=== PATIENT | male | born 1950 | race Caucasian/White ===

== ENCOUNTER → 2016-06-22 | Outpatient (CLI) | payer OTHER, MEDICARE | LOC: BHFA 14:15 | PROVIDERS: ATTEND Internal Medicine Cardiovascular Disease | DX: I25.10 Atherosclerotic heart disease of native coronary artery without angina pectoris (principal); E78.5 Hyperlipidemia, unspecified ==

== ENCOUNTER → 2017-10-05 | Outpatient (CLI) | payer OTHER, MEDICARE | LOC: FIMAGING 12:38 | PROVIDERS: ATTEND Internal Medicine Rheumatology | DX: Z13.820 Encounter for screening for osteoporosis (principal); Z79.52 Long term (current) use of systemic steroids ==

== ENCOUNTER 2018-07-09 14:31 | Inpatient (IN) | payer OTHER, MEDICARE ==
--- NOTE | 2018-07-09 15:10 | EDPHY ---
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, bilat quad repair in [facility] Time Seen by Provider: 07/09/18 14:38 HPI/ROS: This patient was evaluated in the emergency department by - Medical/Surgical History Hx Asthma: No Hx Chronic Respiratory Disease: No Hx Diabetes: No Hx Cardiac Disease: No Hx Renal Disease: No Hx Cirrhosis: No Hx Alcoholism: No Hx HIV/AIDS: No Hx Splenectomy or Spleen Trauma: No Other PMH: Shoulder Sx, hernia, PMR, - Social History Smoking Status: Never smoked Constitutional: Initial Vital Signs Temperature (C) 36.8 C 07/09/18 14:34 Heart Rate 64 07/09/18 14:34 Respiratory Rate 18 07/09/18 14:34 Blood Pressure 138/82 H 07/09/18 14:34 O2 Sat (%) 97 07/09/18 14:34 O2 Delivery Mode Room Air Allergies/Adverse Reactions: No Known Allergies Allergy (Unverified 07/09/18 14:34) Home Medications: Medication Instructions Recorded Acetaminophen [Tylenol ES 500 mg 1,000 mg PO Q6 PRN 07/09/18 (*)] Aspirin EC [Aspirin EC 81 mg (*)] 162 mg PO DAILY16 07/09/18 Cyclizine 50mg Tablet 50 mg PO DAILY PRN 07/09/18 Enoxaparin [Lovenox 40 MG (*)] 40 mg SQ DAILY@19 07/09/18 Lactulose [Enulose] 10 - 20 ml PO BID PRN 07/09/18 predniSONE 3 mg PO DAILY16 07/09/18 traMADol [Ultram 50 mg (*)] 50 - 100 mg PO QID PRN 07/09/18 Departure - Departure Dis[facility] Acute Clinical Impression: Ruptured, tendon, quadriceps Condition: Good
[2018-07-09] MEDS ORDERED: ACETAMINOPHEN 325 MG TAB PO PRN (15:39)
[2018-07-09] MEDS ORDERED: ONDANSETRON DISINTEGRATING 4 MG TAB PO PRN (15:39)
[2018-07-09] MEDS ORDERED: oxyCODONE IR 5 MG TAB PO PRN (15:42)
[2018-07-09] MEDS ORDERED: predniSONE 1 MG TAB PO SCH (16:00)
--- NOTE | 2018-07-09 16:18 | GHP ---
[f rep st] HISTORY AND PHYSICAL DATE OF ADMISSION: 07/09/2018 CHIEF COMPLAINT: Bilateral quadriceps ruptures. PRESENT ILLNESS: Patient is a 68-year-old male was hiking in [facility] 10 days ago when he slipped and sustained bilateral quadriceps ruptures. He was taken to a hospital there where he underwent qu adriceps repair on July 01, approximately 8 days ago. He now has been air vaced back to [place], [place], where he lives in [place] and needs assistance in activities of daily living as both legs are in knee immobilizers, and he cannot return to his house at this time. ALLERGIES: None. CURRENT MEDICATIONS: Prednisone 3 mg p.o. daily, statin drug 5 mg every other day, aspirin 81 mg p.o . b.i.d. he takes the prednisone for polymyalgia rheumatica. REVIEW OF SYSTEMS: Known coronary artery disease without heart attack or other event. Followed by Pablo Collins. He also has polymyalgia rheumatica. SOCIAL HISTORY: Nonsmoker. No alcohol use. , retired. PREVIOUS SURGERY: Hernia repair, right shoulder x2, left shoulder. PHYSICAL EXAM: GENERAL: Pleasant male in minimal distress. HEENT: MEHNAZ, EOMI, sclerae nonicteric. Pharynx clear. NECK: Supple without adenopathy. LUNGS: Clear. HEART: Normal S1, S2 without murmur. ABDOMEN: Soft, benign. PELVIS: Stable to compression. BACK: Nontender. LOWER EXTREMITIES: The knee immobilizer is removed. Dressings taken down. Staple lines are intact. No erythema. No fluctuance. Not very swollen. Loose Kerlix wraps were placed, and then the knee immobilizer is returned. NEURO: Intact at the feet. ASSESSMENT: A 68-year-old male on a low-dose of prednisone, daily aspirin, etc., with bilateral quad riceps ruptures. He has been ambulating with crutches. He only is using Tylenol for pain. He will need some type social disposition, either to senior living facility or rehab until he can get by at his home. We will have Dr. Go from Orthopedics see him tomorrow, make recommendations as to act ivity level and rehab potential, and then social workers assist the family in getting him to an out-o f-hospital facility. /[id number]/MODL
--- NOTE | 2018-07-09 17:06 | EDPHY ---
ED Progress Note Narrative: This patient was evaluated in the emergency department by Dr. Fish Landon, trauma surgeon on-call. This patient had been excepted by the trauma service. Patient arrived from [facility] by air ambulance. While in [facility] he suffered bilateral quadriceps tendon ruptures and underwent surgery. He will be admitted to the hospital where he will undergo orthopedic consultation and arrangements will be made for appropriate outpatient or rehab care. Aside from helping to coordinate the patient's care I was not otherwise involved in his emergency department course. I did not examine this patient.
[2018-07-09] MEDS: ENOXAPARIN 40 MG/0.4 ML SYR SC SCH (19:56)
[2018-07-09] MEDS: ASPIRIN EC 81 MG TAB PO SCH (19:57)
[2018-07-09] MEDS: ACETAMINOPHEN 500 MG TAB PO PRN (20:21)
[2018-07-09] MEDS ORDERED: ASPIRIN 81 MG CHEWABLE TAB PO SCH (21:00)
[2018-07-10] MEDS: ACETAMINOPHEN 500 MG TAB PO PRN ×3 (03:57→21:25)
--- NOTE | 2018-07-10 08:50 | PDIAF ---
- Diagnosis Diagnosis: bilateral quadriceps tendon tears Code Status: Full Code - Medication Management Discharge Medications: electronically signed and located in the Home Medication List. - Orders Services needed: Physical Therapy Additional Instructions: WBAT WITH BRACES LOCKED IN EXTENSION NO ROM CURRENTLY MUST USE BRACES AT ALL TIMES MAY OPEN BRACES WHEN AWAKE AND IN BED f/u at two weeks [facility] seek attn for increasing swelling, leg pain, redness, drainage or discharge continue lovenox - Follow Up Care Current Providers and Referrals: Vita Cardenas MD [Primary Care Provider] - As per Instructions Jose Go MD [Medical Doctor] -
[2018-07-10] MEDS: predniSONE 1 MG TAB PO SCH (09:00)
[2018-07-10] MEDS: ENOXAPARIN 40 MG/0.4 ML SYR SC SCH (09:13)
--- NOTE | 2018-07-10 10:20 | GCON ---
[f rep st] CONSULTATION DATE OF CONSULTATION: 07/09/2018 CHIEF COMPLAINT: Bilateral quadriceps rupture. HISTORY OF PRESENT ILLNESS: The patient is a 68-year-old gentleman who was flown in with a [facility] ervice from [facility] yesterday. He was hiking in [facility] 10 days ago when he slipped and sust ained bilateral quadriceps ruptures. He was taken to a local hospital and underwent surgical repair on July 01. He lives in [place] and was therefore arranged to be transported back to [place]. He denies any other associated injuries. He has a past medical history significant for polymyalgia rheu matica and is on a prednisone dosage daily. He denies any prodrome of knee pain, quadriceps pain at any point prior to this injury. He did not sustain any other injuries in this fall. PAST MEDICAL HISTORY: Polymyalgia rheumatica. PAST SURGICAL HISTORY: He had herniorrhaphy, right shoulder surgery and a left shoulder surgery as w ell. MEDICATIONS: He takes 3 mg of prednisone daily, aspirin 81 mg twice a day. ALLERGIES: No known drug allergies. SOCIAL HISTORY: Denies any tobacco use. No alcohol use. He is and retired. REVIEW OF SYSTEMS: Negative for any chest pain, shortness of breath, belly pain, back pain, numbness , tingling, or other joint-related complaints. OBJECTIVE: GENERAL: This is a healthy gentleman in no acute distress. VITAL SIGNS: Current vital signs demonstrate blood pressure 128/78, pulse is 60, 96% on room air, temperature is 36.6. HEENT: Normocephalic, atraumatic. NECK: Nontender. EXTREMITIES: Bilateral upper extremities are unremark able. Examination of both lower extremities reveals straight-leg immobilizers, which are removed. T he dressings are removed. He has anterior incisions to both knees. He has a alvaro across his r ight leg with mottled redness throughout the thigh and across the anterior aspect of the knee. He ewing s a mild effusion to both knees. There is no purulent drainage. Minimal effusions to both knees. S light dependent ecchymosis. He is tender around the incisional site. The quadriceps tendons by palp ation feel intact on both knees currently, as do his patellar tendons. Minimal direct pressure is ap plied. He has no calf swelling or tenderness. Negative Homans bilaterally. Intact plantar flexion, dorsiflexion, EHL function. Sensation is grossly intact to light touch through both lower extremiti es. IMAGING: Radiographs are unavailable for review currently. IMPRESSION: Bilateral quadriceps tendon ruptures. TREATMENT PLAN: I spent 40 minutes in [id number] discussion today. From an activity standpoint, h e will be straight leg, locked in extension with the braces when in bed and with any mobility outside of the bed for 2 weeks. I would then allow progressive 30-degree range of motion per week until ful l range of motion has been restored at approximately 6 to 8 weeks. He is weightbearing as tolerated with the braces locked in extension to both lower extremities. We will continue with daily dressing changes. I will obtain new x-rays to evaluate across bilateral knees. He will continue on Lovenox f or likely 6 weeks given his high risk for blood clot. I would recommend an acute inpatient rehab, al though he is unlikely to have 3 hours of active acute rehab goals on a daily basis. He is most likel y a subacute rehab candidate and he will continue with physical therapy for mobility here. /[id number]/MODL
[2018-07-10] MEDS ORDERED: [UNRECOGNIZED DRUG - OTHER] PO PRN (15:48)
[2018-07-10] MEDS ORDERED: traMADol 50 MG TAB PO PRN (15:48)
--- NOTE | 2018-07-10 16:10 | ASMTCMCOM ---
CM Note CM Note Notes: Pt had quadriceps rupture injury in [facility], has bilat knee immobilizers Pt was medi-vac to [facility] yesterday. Pt was in the [facility] in [facility] hospital several days, copies of the medical record in the chart. PT/OT rec inpatient rehab, a rehab consult order is in and a voicemail was left for admissions. [facility] inpatient rehab is pt desired d/c plan. Pt resides with . Pt will require SNF if he does not get into inpatient rehab. Referrals and Medicare "Three-Day prior hospitalization Foreign Hospital" rule were sent to top choice SNFs [facility] and [facility] and medical records being made by will be sent to SNFs. Renate with [facility] reports once they obtain the medical records they will have to submit to their regional office to see if the [facility] hospitalization will count as a qualifying hospitalization. [facility] is reviewing. Pt travel insurance is also provided to SNFs to determine if they can cover any SNF. D/c plan is TBD Date Signed: 07/10/2018 04:09 PM Electronically Signed By:TEA Escoto
--- NOTE | 2018-07-10 16:59 | TRAUMAPNT ---
Trauma Tertiary Progress Note New Findings: No new findings Assessment/Plan: This is a 68-year-old gentleman who presented to the hospital after transferred from [facility] after bilateral quad tendon avulsion/rupture. The patient has been seen in consultation by Dr. Go who was recommended extension braces while in and out of bed for bilateral knee immobilization. He will follow up with Dr. Go as an outpatient. Primarily at this point placement is the issue. Assessment by physical therapy was performed today please see their note. Regular rate and rhythm Clear to auscultation Abdomen soft nontender nondistended Bilateral extension braces in place incisions clean and dry no erythema or sign of infection Distally neurovascularly intact Nonfocal neurologic exam Skin normal turgor and tone Impression/plan: Bilateral quad tendon rupture status post repair in [facility]. Placement. Follow up with Dr. Go from orthopedic surgery. DVT prophylaxis for 6 weeks with L[address]ox [address] Dr. Go. Acute inpatient rehab per PT on discharge Objective: Vital Signs Temp Pulse Resp BP Pulse Ox 36.6 C 60 14 128/78 H 96 07/10/18 07:57 07/10/18 07:57 07/10/18 07:57 07/10/18 07:57 07/10/18 07:57 07/09/18 07/10/18 07/11/18 05:59 05:59 05:59 Intake Total 300 500 Output Total 1600 200 Balance -1300 300
[2018-07-10] MEDS: ASPIRIN EC 81 MG TAB PO SCH (17:03)
--- NOTE | 2018-07-10 18:20 | PDMN ---
Medical Necessity Medical necessity: Change to IP, as of 07/10/18, per & [facility] General Discharge Criteria; los >2 mn for ongoing management of bilateral quadriceps tendon ruptures s/p surgical repair (07/01/18); pt hospitalized in [facility] following surgical repair & was transported to [facility] via [facility]; pt unsafe to return home; pt max assist w/transfers; requiring bilateral knee immobilizers w/ mobility & is unable to complete ADLS independently; requiring therapy & CM consult for dc planning; comorbid advanced age, polymyalgia rheumatica on Prednisone, CAD
[2018-07-11] MEDS: predniSONE 1 MG TAB PO SCH (06:04)
[2018-07-11] MEDS: ACETAMINOPHEN 500 MG TAB PO PRN ×2 (06:04→21:29)
--- NOTE | 2018-07-11 06:47 | SOAPPROG ---
SOAP Progress Note Assessment/Plan: Assessment: connor quad tendon tears, s/p repair Plan:snf likely possible acute rehab adjusted braces d/c when stabe reviewed dvt precautions 07/11/18 06:45 Subjective: min pain no cp or sob no new complaints Objective: Vital Signs Temp Pulse Resp BP Pulse Ox 36.7 C 54 L 16 126/82 H 94 07/10/18 21:19 07/10/18 21:19 07/10/18 21:19 07/10/18 21:19 07/10/18 21:19 07/10/18 07/11/18 07/12/18 05:59 05:59 05:59 Intake Total 750 Output Total 750 Balance 0 dressings intact intact pf,df, ehl min swelling to connor lower ext toes warm and pink neg homans connor braces adjusted ICD10 Worksheet Patient Problems: Problems Problem Status Onset Ruptured, tendon, quadriceps Acute
[2018-07-11] MEDS: ENOXAPARIN 40 MG/0.4 ML SYR SC SCH (09:11)
--- NOTE | 2018-07-11 12:45 | TRAUMAPN ---
Trauma Progress Note - Problem/Surgery Performed (1) Fall Assessment/Plan: mechanism of injury, fall while hiking in [facility] [place]atriated [place] the [place] 07[place]09 awaiting approval for IP rehab Qualifiers: Encounter type: initial encounter Qualified Code(s): W19.XXXA - Unspecified fall, initial encounter (2) Ruptured, tendon, quadriceps Assessment/Plan: s/p operative repair doing well overall, able to stand with posterior brace discussed senior living wound healing and need for rehab He has a flight of stairs to negotiate at home and will be unable to return home until he can get up and down stairs (3) PMR (polymyalgia rheumatica) Assessment/Plan: takes low dose prednisone on a tapering dose, currently at 3mg/day Assessment/Plan: 10 days s/p bilateral quad tendon rupture s/p repair [facility] will require inpatient rehab for optimal outcome Bed availability and insurance approval pending continue VTE prophyaxis with SCDs and LMWH Subjective: awake, sitting up eating lunch pain well controlled working daily with PT Objective: Vital Signs Temp Pulse Resp BP Pulse Ox 36.7 C 69 18 119/72 96 07/11/18 08:00 07/11/18 08:00 07/11/18 08:00 07/11/18 08:00 07/11/18 08:00 07/10/18 07/11/18 07/12/18 05:59 05:59 05:59 Intake Total 750 500 Output Total 750 Balance 0 500 - C-Spine Clearance Cervical Spine Cleared: Yes Provider who Cleared Cervical Spine: Dipesh Physical Exam - Physical Exam General Appearance: alert, no apparent distress EENT: normal ENT inspection Neck: non-tender Respiratory: chest non-tender, lungs clear, normal breath sounds Cardiac/Chest: regular rate, rhythm Peripheral Pulses: 3+: dorsalis-pedis (R), dorsalis-pedis (L) Abdomen: non-tender, soft Extremities: other (bilateral knee immobilizers in place/dressing not removed) Neuro/Psych: alert, normal mood/affect, oriented x 3
--- NOTE | 2018-07-11 15:40 | ASMTCMCOM ---
CM Note CM Note Notes: Pt does not qualify for [facility] inpatient rehab. Pt chooses [facility], [facility] notified and updates sent today in Allscripts. D/c plan of care: [facility] Monday Date Signed: 07/11/2018 03:39 PM Electronically Signed By:TEA Escoto
[2018-07-11] MEDS: ASPIRIN EC 81 MG TAB PO SCH (16:32)
[2018-07-12] MEDS: ACETAMINOPHEN 500 MG TAB PO PRN ×2 (06:00→21:29)
[2018-07-12] MEDS: predniSONE 1 MG TAB PO SCH (06:01)
--- NOTE | 2018-07-12 06:32 | SOAPPROG ---
SOAP Progress Note Assessment/Plan: Assessment: connor quad tendon tears, s/p repair Plan:snf likely possible acute rehab adjusted braces d/c when stabe reviewed dvt precautions seen in hallway dressings intact continue mobility to [facility] monday07/11/18 06:45 07/12/18 06:31 Objective: Vital Signs Temp Pulse Resp BP Pulse Ox 36.3 C 52 L 16 104/71 96 07/12/18 05:26 07/12/18 05:26 07/12/18 05:26 07/12/18 05:26 07/12/18 05:26 07/11/18 07/12/18 07/13/18 05:59 05:59 05:59 Intake Total 750 950 Output Total 750 775 Balance 0 175 ICD10 Worksheet Patient Problems: Problems Problem Status Onset Fall Acute PMR (polymyalgia rheumatica) Acute Ruptured, tendon, quadriceps Acute
--- NOTE | 2018-07-12 09:31 | TRAUMAPN ---
Trauma Progress Note Assessment/Plan: (1) Fall mechanism of injury, fall while hiking in [facility] [place] repatriated to the 07/09 Approved for rehab, plan to transfer tomorrow. 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 rehab He has a flight of stairs to negotiate at home and will be unable to return home until he can get up and down stairs (3) PMR (polymyalgia rheumatica) Assessment/Plan: takes low dose prednisone on a tapering dose, currently at 3mg/day Assessment/Plan: 11 days s/p bilateral quad tendon rupture s/p repair [facility] will require inpatient rehab for optimal outcome Medicare approved, plan to go d/c to rehab tomorrow continue VTE prophyaxis with SCDs and LMWH Objective: Vital Signs Temp Pulse Resp BP Pulse Ox 36.4 C 58 L 14 116/65 94 07/12/18 08:27 07/12/18 08:27 07/12/18 08:27 07/12/18 08:27 07/12/18 08:27 07/11/18 07/12/18 07/13/18 05:59 05:59 05:59 Intake Total 750 950 Output Total 750 775 Balance 0 175 - C-Spine Clearance Cervical Spine Cleared: Yes Physical Exam - Physical Exam General Appearance: WD/WN, alert, no apparent distress EENT: PERRL/EOMI, normal ENT inspection, pharynx normal, TMs normal Respiratory: chest non-tender, normal breath sounds, crackles (very mild crackles in anterior portion of LLL. ) Cardiac/Chest: normal peripheral pulses, regular rate, rhythm Peripheral Pulses: 2+: carotid (R), carotid (L), femoral (R), femoral (L), dorsalis-pedis (R), dorsalis-pedis (L) Abdomen: normal bowel sounds, non-tender, soft Male Genitalia: deferred Rectal: deferred Skin: normal color, warm/dry Extremities: other (legs in knee immobilizers bilaterally) Neuro/Psych: no motor/sensory deficits, alert, normal mood/affect, oriented x 3
[2018-07-12] MEDS: ENOXAPARIN 40 MG/0.4 ML SYR SC SCH (10:03)
[2018-07-12] MEDS: ASPIRIN EC 81 MG TAB PO SCH (16:48)
[2018-07-13] MEDS: predniSONE 1 MG TAB PO SCH (06:26)
[2018-07-13] MEDS: ACETAMINOPHEN 500 MG TAB PO PRN (06:29)
--- NOTE | 2018-07-13 07:13 | SOAPPROG ---
SOAP Progress Note Assessment/Plan: Assessment: connor quad tendon tears, s/p repair Plan:snf likely possible acute rehab adjusted braces d/c when stabe reviewed dvt precautions seen in hallway dressings intact continue mobility to [facility] monday07/11/18 06:45 07/12/18 06:31 Subjective: doing well min pain no cp or sob Objective: Vital Signs Temp Pulse Resp BP Pulse Ox 36.7 C 53 L 16 114/69 95 07/12/18 23:07 07/12/18 23:07 07/12/18 23:07 07/12/18 23:07 07/12/18 23:07 07/12/18 07/13/18 07/14/18 05:59 05:59 05:59 Intake Total 950 Output Total 775 Balance 175 dressings intact min swelling no erythema or drainage intact pf,df,ehl toes warm and pink neg homans connor ICD10 Worksheet Patient Problems: Problems Problem Status Onset Fall Acute PMR (polymyalgia rheumatica) Acute Ruptured, tendon, quadriceps Acute
--- NOTE | 2018-07-13 07:18 | PDIAF ---
- Diagnosis Diagnosis: bilateral quadriceps tendon tears Code Status: Full Code - Medication Management Discharge Medications: electronically signed and located in the Home Medication List. - Orders Services needed: Physical Therapy, Occupational Therapy Diet Recommendation: no restrictions on diet Diet Texture: Regular Texture Diet Additional Instructions: WBAT WITH BRACES LOCKED IN EXTENSION at all times NO ROM CURRENTLY MUST USE BRACES AT ALL TIMES MAY OPEN BRACES WHEN AWAKE AND IN BED Passive rom 0-30 deg from july 16 increase to 0-60 deg from july 23 no quad sets, no strengthening exercises dao out july 15 or july 16 f/u at two weeks [facility] seek attn for increasing swelling, leg pain, redness, drainage or discharge continue lovenox for additional two weeks - Follow Up Care Current Providers and Referrals: Vita Cardenas MD [Primary Care Provider] - As per Instructions Jose Go MD [Medical Doctor] -
[2018-07-13 08:01] VITALS: BP 118/72
[2018-07-13] MEDS: ENOXAPARIN 40 MG/0.4 ML SYR SC SCH (08:59)
--- NOTE | 2018-07-13 12:27 | ASMTLACE ---
LACE Length of stay for Answers: 4-6 days current admission Acuity / Level of Answers: Yes Care: Did the patient have an inpatient admission? Comorbidities - select Answers: Coronary Artery Disease all that apply # of Emergency department Answers: 1-2 visits in the last 6 months Score: 10 Date Signed: 07/13/2018 12:24 PM Electronically Signed By:TEA Escoto
--- NOTE | 2018-07-13 12:31 | ASMTCMCOM ---
CM Note CM Note Notes: Pt medically stable for d/c to [facility]. Orders sent in Allscripts. RN Fernanda to call report. [facility] stretcher transport arranged for 13:30, copy of PCS in chart. Pt is at bedside and is updated. Records from [facility] hospital stay to go with pt. Date Signed: 07/13/2018 12:29 PM Electronically Signed By:TEA Escoto
--- NOTE | 2018-07-13 14:48 | ASDISCHSUM ---
Discharge Information Plan Status:SNF Medically Cleared to Leave: Discharge Date:07/13/2018 02:14 PM CM D/C Disposition: ADT D/C Disposition:Long Term Facility Projected Discharge Date:07/11/2018 11:00 AM Transportation at D/C: Discharge Delay Reason: Follow-Up Date:07/11/2018 11:00 AM Discharge Slot: Final Diagnosis: Placement Information Referral Type:*Long-Term/SNF Referral ID:[id number] Provider Name:[facility] Address 1:[facility] Address 2: [facility] Selection Factors: State:[place] Patient Contact Information Contact Name:ARSENIO Relationship: Address[address] Work Phone: [facility]:[place] Alternate Phone: State/Zip Code:[place] [address] Email: Financial Information Financial Class:Medicare Primary Plan Desc:MEDICARE INPATIENT Primary Plan Number:[id number] Secondary Plan Desc:[employer] SUPPLEMENT Secondary Plan Number:[id number] Assessment Information LACE LACE Length of stay for Answers: 4-6 days current admission Acuity / Level of Answers: Yes Care: Did the patient have an inpatient admission? Comorbidities - select Answers: Coronary Artery Disease all that apply # of Emergency department Answers: 1-2 visits in the last 6 months Score: 10 Date Signed: 07/13/2018 12:24 PM Electronically Signed By:TEA Escoto [facility] CM Progress Note CM Note CM Note Notes: Pt had quadriceps rupture injury in [place], has bilat knee immobilizers Pt was medi-vac to [facility] yesterday. Pt was in the [facility] in [facility] several days, copies of the medical record in the chart. PT/OT rec inpatient rehab, a rehab consult order is in and a voicemail was left for admissions. [facility] inpatient rehab is pt desired d/c plan. Pt resides with . Pt will require SNF if he does not get into inpatient rehab. Referrals and Medicare "Three-Day prior hospitalization Foreign Hospital" rule were sent to [facility] choice SNFs [facility] and [facility] and medical records being made by will be sent to SNFs. Renate with [facility] reports once they obtain the medical records they will have to submit to their regional office to see if the [facility] hospitalization will count as a qualifying hospitalization. [facility] is reviewing. Pt travel insurance is also provided to SNFs to determine if they can cover any SNF. D/c plan is TBD Date Signed: 07/10/2018 04:09 PM Electronically Signed By:TEA Escoto [facility] Progress Note CM Note CM Note Notes: Pt does not qualify for [facility] inpatient rehab. Pt chooses [facility], notified and updates sent today in [employer]. D/c plan of care: [facility] [place] Monday Date Signed: 07/11/2018 03:39 PM Electronically Signed By:TEA Escoto [facility] CM Progress Note CM Note CM Note Notes: Pt medically stable for d/c to [facility]. Orders sent in Allscripts. RN Fernanda to call report. [facility] stretcher transport arranged for 13:30, copy of PCS in chart. Pt is at bedside and is updated. Records from [facility] stay to go with pt. Date Signed: 07/13/2018 12:29 PM Electronically Signed By:TEA Escoto Intervention Information Intervention Type:*SALAS-Signed Date of Service:07/10/2018 10:28 AM Patient Type:Observation Staff Member:Jennifer Paris Hours: Discipline: Severity: Comment:
== END 2018-07-13 14:14 | DRG 538 ==
LOC: F3N 18:34 → OBSVTOIN 07-10 17:58
PROVIDERS: ADMIT Surgery; ATTEND Surgery
DX: S76.111A Strain of right quadriceps muscle, fascia and tendon, initial encounter (principal); S76.112A Strain of left quadriceps muscle, fascia and tendon, initial encounter; Z98.890 Other specified postprocedural states; W01.0XXA Fall on same level from slipping, tripping and stumbling without subsequent striking against object, initial encounter; Y93.01 Activity, walking, marching and hiking; I25.10 Atherosclerotic heart disease of native coronary artery without angina pectoris; M35.3 Polymyalgia rheumatica
CPT/HCPCS: 97116-GP; 97162-GP; 97166-GO; 97530-GO; 97530-GP; 97535-GO; G0378; J1650; J7512; L1832